=== PATIENT | female | born 1990 ===

== ENCOUNTER 2016-06-26 21:18 | Emergency (ER) | payer SELFPAY ==
[2016-06-26 21:56] VITALS: BMI 35.2
[2016-06-26] MEDS ORDERED: Bicitra 30 ML UD PO ONE (22:22)
[2016-06-26] MEDS ORDERED: Lactated Ringer's 1,000 ML IV SCH (23:30)
[2016-06-27 00:08] LABS: HEMATOCRIT 36.5 % (34.0-47.0); MEAN CELL VOLUME 89.2 fl (81.0-99.0); MEAN CORPUSCULAR HEMOGLOBIN 30.3 pg (27.0-31.0); WHITE BLOOD COUNT 6.9 K/uL (4.8-10.8)
[2016-06-27 00:11] LABS: RBC URINE < 1 /hpf (0-3); URINE BILIRUBIN NEGATIVE (NEGATIVE); URINE BLOOD NEGATIVE (NEGATIVE); URINE COLOR STRAW (YELLOW); URINE GLUCOSE (UA) NEG (Normal); URINE KETONE NEGATIVE (NEGATIVE); URINE LEUKOCYTE ESTERASE NEG Leu/uL (Negative); URINE PROTEIN NEGATIVE (NEGATIVE); URINE UROBILINOGEN 0.2-1.0 mg/dL (0.2-1.0); WBC URINE 1 /hpf (0-5)
[2016-06-27 00:24] LABS: ALKALINE PHOSPHATASE 140 U/L (38-126); ALT/SGPT 28 U/L (9-52); AST/SGOT 21 U/L (14-36); BILIRUBIN,TOTAL 0.6 mg/dl (0.2-1.3); BLOOD UREA NITROGEN 8 mg/dl (7-17); CALCIUM 9.1 mg/dL (8.4-10.2); CARBON DIOXIDE 22 mmol/L (22-30); CHLORIDE 103 mmol/L (98-107); GFR AFRICAN-AMERICAN > 60; GLUCOSE,RANDOM 97 mg/dL (65-105); POTASSIUM 4.1 MMOL/L (3.6-5.0); SODIUM 135 mmol/l (132-148); TOTAL PROTEIN 6.4 G/DL (6.3-8.2)
--- NOTE | 2016-07-07 15:24 | OBHP ---
Datetime: 06/27/2016 01:06 Admit Comment, IP Provider: Patient states that abdominal pain has subsided after Bicitrin and has b een sleeping. CBC, CMP, UA normal. Case discussed with Dr Torres. Patient cleared to be discharged. Patient state s that tomorrow has appointent in the clinic. Mitchell Myles PGY1 Addendum by Dr. Torres: I have evaluated the patient independently and I agree with the above. THe patient is asytmptomatic now and her labs are wnl. Patient to be discharged home with labor precautio ns and follow up in the clinic. Datetime: 06/26/2016 22:19 IP Adm Impression: , intrauterine IP Chief Complaint Other: epigastric abd pain, diarrhea IP Admit Plan: Observation/Evaluation Pelvic Type - PN: Not Done Extremities - PN: Normal Abdomen - PN: Abnormal Back - PN: Normal Lungs - PN: Normal Heart - PN: Normal Thyroid - PN: Normal Neurologic - PN: Normal HEENT - PN: Normal General - PN: Normal FHR - Baseline A Provider: 145 Comments, ACOG Physical Exam: epigastric abd pain and LLQ, difuse, no guarding, no rebound TD. Vital Signs Provider: Reviewed; Within Normal Limits IP Chief Complaint: Other NICHD Variability Prov Fetus A: Moderate 6-25bpm NICHD Accel Fetus A IP Provider: 15X15 FHR Category Provider Fetus A: Category I NICHD Decel Fetus A IP Provider: None DTRs - PN: Normal
== END 2016-06-27 01:15 | disposition home or self-care (01) ==
LOC: H.EROB2 21:18
DX: O26.93 Pregnancy related conditions, unspecified, third trimester (principal); Z3A.32 32 weeks gestation of pregnancy; R10.9 Unspecified abdominal pain

== ENCOUNTER 2016-07-25 10:41 | Emergency (ER) | payer SELFPAY ==
[2016-07-25 10:44] VITALS: BMI 26.6
[2016-07-25] MEDS ORDERED: Lactated Ringer's 1,000 ML IV SCH (11:30)
--- NOTE | 2016-07-25 11:35 | OBHP ---
Datetime: 07/25/2016 11:14 IP Adm Impression: , intrauterine IP Admit Plan: Observation/Evaluation Admit Comment, IP Provider: 25 yo , f, LMP 08/14 w/th edc 08/21 By 10wk us at 36.1 weeks toda y. OB hx sig for GDM A1 during this . Pt was referred to L_D by clinic for r/o ptl. In [facility] pt was found to be 1-2/-2/station Pt states she has had dysuria, increased freq and some blood noted this am when she voided. She denies fever, back pain, n/v, ctxs, pprom. Denies coitus >1mo. POBhx: GDM on glyburide after 06/15, x 1 PGynhx: none PMhx: none Allergies: none Meds: vit, Glyburide ordered 06/15 PSurgHx: none PShx: no ETOH, rect drugs, cig ABO: O + antibody : neg Gc/chlam: neg GBS unknown ri, hepBneg I:Threatened PTL UTI P: u/a, cbc ivf Presentation-Admit: Vertex Comments, ACOG Physical Exam: 1-2/-2 in office EGA AdmitDate IP: 36.1 IP Chief Complaint: Signs/symptoms UTI; Other
[2016-07-25 12:02] LABS: BASO % 0.4 % (0.0-2.0); EOS % 0.2 % (0.0-4.0); HEMATOCRIT 35.1 % (34.0-47.0); LYMPH % 17.5 % (20.0-40.0); MEAN CELL VOLUME 88.2 fl (81.0-99.0); MEAN CORPUSCULAR HEMOGLOBIN 30.7 pg (27.0-31.0); MEAN CORPUSCULAR HGB CONC 34.8 g/dL (33.0-37.0); MEAN PLATELET VOLUME 10.1 fl (7.2-11.7); MONO # 0.4 K/uL (0.0-0.8); MONO % 6.7 % (0.0-10.0); NEUT # 4.4 K/uL (1.8-7.0); NEUT % 75.2 % (50.0-75.0); RED CELL DISTRIBUTION WIDTH 13.6 % (11.5-14.5); WHITE BLOOD COUNT 5.9 K/uL (4.8-10.8)
[2016-07-25 12:03] LABS: RBC URINE 2 /hpf (0-3); URINE BACTERIA RARE (<OCC); URINE BILIRUBIN NEGATIVE (NEGATIVE); URINE BLOOD SMALL (NEGATIVE); URINE COLOR YELLOW (YELLOW); URINE GLUCOSE (UA) NEG (Normal); URINE KETONE NEGATIVE (NEGATIVE); URINE LEUKOCYTE ESTERASE TRACE Leu/uL (Negative); URINE PROTEIN NEGATIVE (NEGATIVE); URINE UROBILINOGEN 0.2-1.0 mg/dL (0.2-1.0); WBC URINE 3 /hpf (0-5)
[2016-07-25 12:13] LABS: BLOOD UREA NITROGEN 10 mg/dl (7-17); CALCIUM 8.8 mg/dL (8.4-10.2); CARBON DIOXIDE 22 mmol/L (22-30); CHLORIDE 105 mmol/L (98-107); GFR AFRICAN-AMERICAN > 60; GLUCOSE,RANDOM 88 mg/dL (65-105); POTASSIUM 3.9 MMOL/L (3.6-5.0); SODIUM 136 mmol/l (132-148)
[2016-07-25] MEDS ORDERED: Betamethasone Soluspan 30 mg/5mL Inj Susp IM ONE (15:45)
--- NOTE | 2016-07-25 16:11 | OBHP ---
Datetime: 07/25/2016 15:50 Admit Comment, IP Provider: s: no c/o. denies ctxs. 3cm/80/-1 to -2, no change, posterior u/a neg p: betamethasone x1 today. return to [facility] tomorrow for beta #2 indic for beta d/w pt she agrres w/ plan of care ptl precautions pelvic rest. Datetime: 07/25/2016 11:14 Pelvic Type - PN: Adequate Extremities - PN: Normal Abdomen - PN: Normal Back - PN: Normal Breast - PN: Not Done Lungs - PN: Normal Heart - PN: Normal Neurologic - PN: Normal HEENT - PN: Normal General - PN: Normal FHR - Baseline A Provider: 130 Contraction Comments Provider: occasional EGA AdmitDate IP: 36.1 Vital Signs Provider: Within Normal Limits NICHD Variability Prov Fetus A: Moderate 6-25bpm NICHD Accel Fetus A IP Provider: 15X15 FHR Category Provider Fetus A: Category I NICHD Decel Fetus A IP Provider: None Dilatation, Provider: 3 Effacement, Provider: 75 Station, Provider: -1/post Genitourinary Exam: Normal DTRs - PN: Not Done
== END 2016-07-25 16:42 | disposition home or self-care (01) ==
LOC: H.EROB2 10:41 → H.L&D 10:44 → H.EROB2 16:42
DX: O47.03 False labor before 37 completed weeks of gestation, third trimester (principal); O23.43 Unspecified infection of urinary tract in pregnancy, third trimester; Z3A.36 36 weeks gestation of pregnancy

== ENCOUNTER 2016-07-26 15:42 | Emergency (ER) | payer SELFPAY ==
[2016-07-26 16:39] VITALS: BMI 27.4
[2016-07-26] MEDS ORDERED: Betamethasone Soluspan 30 mg/5mL Inj Susp IM ONE (16:40)
--- NOTE | 2016-07-26 16:49 | OBHP ---
Datetime: 07/26/2016 16:43 IP Adm Impression: , intrauterine IP Chief Complaint Other: Steroid injection IP Admit Plan: Observation/Evaluation; Discharge home Pelvic Type - PN: Adequate Extremities - PN: Normal Abdomen - PN: Normal Back - PN: Not Done Breast - PN: Not Done Lungs - PN: Normal Heart - PN: Normal Thyroid - PN: Not Done Neurologic - PN: Not Done HEENT - PN: Normal General - PN: Normal FHR - Baseline A Provider: 150 EGA AdmitDate IP: 36.2 Vital Signs Provider: Reviewed; Within Normal Limits IP Chief Complaint: Other NICHD Variability Prov Fetus A: Moderate 6-25bpm NICHD Accel Fetus A IP Provider: 15X15 FHR Category Provider Fetus A: Category I NICHD Decel Fetus A IP Provider: None Genitourinary Exam: Normal DTRs - PN: Not Done
== END 2016-07-26 17:30 | disposition home or self-care (01) ==
LOC: H.EROB2 15:42
DX: O47.03 False labor before 37 completed weeks of gestation, third trimester (principal); Z3A.36 36 weeks gestation of pregnancy

== ENCOUNTER 2016-07-30 06:18 | Inpatient (IN) | payer MEDICAID, SELFPAY ==
[2016-07-30 07:04] VITALS: BMI 26.6
[2016-07-30] MEDS ORDERED: Oxytocin 20 units in LR 2,000 ML IV ONE (08:32)
[2016-07-30] MEDS ORDERED: Lidocaine 1% Inj (20ml) ONE (08:33)
[2016-07-30] MEDS ORDERED: Lactated Ringer's 1,000 ML IV SCH (09:00)
[2016-07-30 09:28] LABS: BASO % 0.5 % (0.0-2.0); EOS % 0.6 % (0.0-4.0); HEMATOCRIT 38.7 % (34.0-47.0); LYMPH # 1.3 K/uL (1.0-4.3); MEAN CELL VOLUME 89.5 fl (81.0-99.0); MEAN CORPUSCULAR HEMOGLOBIN 30.1 pg (27.0-31.0); MEAN CORPUSCULAR HGB CONC 33.7 g/dL (33.0-37.0); MEAN PLATELET VOLUME 10.7 fl (7.2-11.7); MONO # 0.5 K/uL (0.0-0.8); MONO % 8.5 % (0.0-10.0); NEUT # 4.4 K/uL (1.8-7.0); NEUT % 70.4 % (50.0-75.0); NRBC % 0.1 % (0.0-0.0); RED CELL DISTRIBUTION WIDTH 13.6 % (11.5-14.5); WHITE BLOOD COUNT 6.3 K/uL (4.8-10.8)
[2016-07-30] MEDS ORDERED: Oxycodone/Acetaminophen 5/325 mg Tab PO PRN ×2 (10:51→16:22)
--- NOTE | 2016-07-30 12:46 | OBDS ---
DELIVERY PERSONNEL Delivery Doctor: Johnathan Espana MD Terrazzo Tile Maker: Batsheva Humphries RN MATERNAL INFORMATION Delivery Anesthesia: Local Medications in Delivery: Pitocin 20 units in LR 1 L Estimated Blood Loss (ml): 200 Placenta Cultured: No Maternal Complications: None Provider Comments: Delivered a live baby girl at 9:10 AM the baby was bulb suctioned on the perineum then transferred to maternal chest the cord was clamped and cut and 3 vessels noted cord blood was o btained and sent to the lab. The placenta was delivered at night 13 a.m. intact he estimated blood lo ss was 200 mL. There was a first-degree left vaginal laceration which was repaired with 2-0 rapide. P itocin was infused to assist in uterine embolization. The mother tolerated the procedure well baby we nt to the nursery with Apgars of 9 and 9 weighing 3185 g LABOR SUMMARY EDC: 08/21/2016 00:00 No. Babies in Womb: 1 Attempted: No Labor Anesthesia: None LABOR INFORMATION Onset of Labor: 07/30/2016 05:00 Complete Dilatation: 07/30/2016 09:00 Oxytocin: N/A Group B Beta Strep: Negative Antibiotics # of Doses: n/a Antibiotics Time of Last Dose: n/a Steroids Given: None Reason Steroids Not Administered: Not Applicable MEMBRANES Membranes Rupture Method: Spontaneous Rupture of Membranes: 07/30/2016 06:00 Length of Rupture (hrs): 3.17 Amniotic Fluid Color: Clear Amniotic Fluid Amount: Small Amniotic Fluid Odor: Normal STAGES OF LABOR Stage 1 hrs: 4 Stage 1 min: 0 Stage 2 hrs: 0 Stage 2 min: 10 Stage 3 hrs: 0 Stage 3 min: 3 Total Time in Labor hrs: 4 Total Time in Labor min: 13 VAGINAL DELIVERY Episiotomy: None Laceration Extension: First Degree Laceration Type: Vaginal Laceration Repair: Yes Laceration Repair Note: 2.0 rapide Sponge Count Correct: Yes Sharps Count Correct: Yes BABY A INFORMATION Delivery Date/Time: 07/30/2016 09:10 Method of Delivery: Vaginal Born in Route : No : N/A Forceps: N/A Vacuum Extraction: N/A Shoulder Dystocia : No SHOULDER DYSTOCIA BABY A Infant Delivery Date/Time: 07/30/2016 09:10 PRESENTATION/POSITION BABY A Presentation: Cephalic Breech Presentation: N/A PLACENTA INFORMATION BABY A Placenta Delivery Time : 07/30/2016 09:13 Placenta Method of Delivery: Spontaneous Placenta Status: Delivered SCORES BABY A Heart Rate 1 min: >100 bpm Resp Effort 1 min: Good Cry Reflex Irritability 1 min: Cough or Sneeze or Pulls Away Muscle Tone 1 min: Active Motion Color 1 min: Body [place], Extremities Blue Resuscitation Effort 1 min: Tactile Stimulation SCORE 1 MIN: 9 Heart Rate 5 min: >100 bpm Resp Effort 5 min: Good Cry Reflex Irritability 5 min: Cough or Sneeze or Pulls Away Muscle Tone 5 min: Active Motion Color 5 min: Body [place], Extremities Blue Resuscitation Effort 5 min: N/A SCORE 5 MIN: 9 INFORMATION BABY A Gestational Age at Delivery: 36.6 Gestational Status: Outcome : Liveborn Condition : Stable Infant Sex: Female IDENTIFICATION/MEDS BABY A ID Band Number: [id number] ID Band Location: Left Leg; Left Arm Vitamin K Given : Not Given Erythromycin Given: Not Given WEIGHT/LENGTH BABY A Infant Birthweight (gms): 3185 Infant Weight (lb): 7 Weight (oz): 0 CORD INFORMATION BABY A No. Cord Vessels: 3 Nuchal Cord : N/A Nuchal Cord Other: n/a True Knot: n/a Cord pH Baby Arterial: n/a Cord pH Baby Venous: n/a Cord Blood Taken: Yes Banking/Donate Info: n/a Infant Suction: Mouth; Nose ASSESSMENT BABY A Infant Complications: None Physical Findings at Delivery: Within Normal Limits Respirations: Appears Normal Hooker Machine Tender/ALS Called : No Infant Care By: Shaan Transferred To: Remains with Mother
[2016-07-30 14:48] VITALS: BP 132/77; PULSE 70; RESP 18; TEMP 97.2; O2SAT 100
[2016-07-31] MEDS: Lactated Ringer's 1,000 ML IV SCH ×2 (01:22→15:55)
[2016-07-31 06:55] LABS: HEMATOCRIT 34.4 % (34.0-47.0); MEAN CELL VOLUME 89.3 fl (81.0-99.0); MEAN CORPUSCULAR HEMOGLOBIN 30.4 pg (27.0-31.0); MEAN CORPUSCULAR HGB CONC 34.1 g/dL (33.0-37.0); RED CELL DISTRIBUTION WIDTH 13.8 % (11.5-14.5); WHITE BLOOD COUNT 11.5 K/uL (4.8-10.8)
--- NOTE | 2016-07-31 12:35 | OBPPN ---
Datetime: 07/31/2016 07:53 PP Pain Prov: Within normal limits PP Nausea Prov: Denies PP Flatus Prov: No PP BM Prov: No PP Breasts Prov: Normal PP Heart Prov: Normal PP Lungs Prov: Normal PP Abdomen/Uterus Prov: Normal PP Lochia Prov: Normal PP Vulva/Perineum Prov: Not Done PP CVA Tenderness Prov: Not Done PP Extremities Prov: Normal PP C/S Incision Prov: Not Applicable PP Progress Prov: Normal PP Impression Prov: Normal progression PP Plan Prov: Continue present management PP Progress Note Prov: 25 y/o now seen and examined at bedside. Patient had uneventful overnig ht. Patient reports mild pelvic pain controlled w/ pain meds. OOB/Ambulating w/o dizziness. Breast /bottle feeding w/o difficulty. Tolerating PO diet well. Lochia is less than menses in volume. Voi ding freely w/ no blood noted. Reports no bowel movement. Denies fevers, chills, n/v/d, CP/SOB, lig htheadedness and calf pain. PE: GEN: A_O, resting comfortably in bed, NAD Lung: CTA B/L, no wheezing, rhonchi, or rales CVS: S1, S2 wnl, RRR Abd: +BS, firm fundus below umbilicus. EXT: no edema, negative Martha's, calves non-tender Assessment: 25 y/o now s/p on 07/30/2016 @ 09:10 pm tolerating pain w/ medication, marshal ating oral intake, adequate urine output, doing well on PPD1. Plan: Percocet 5/325 mg 1-2 tabs PO Q6h prn for mod/severe pain. Ibuprofen 600 mg 1 tab Q6h PO pr n for mild pain. Encourage breast feeding and ambulation. Jesus Bell M.D. Orthotics Prosthetics Technician PGY-1 obh addendum: pt seen _ exmined by me. agree with above assessment and plan. IP PP Procedures: None Vital Signs Provider PP: Reviewed; Within Normal Limits
--- NOTE | 2016-08-01 10:10 | OBPPN ---
Datetime: 08/01/2016 05:45 PP Pain Prov: Within normal limits PP Nausea Prov: Denies PP Flatus Prov: Yes PP BM Prov: Yes PP Breasts Prov: Normal PP Heart Prov: Normal PP Lungs Prov: Normal PP Abdomen/Uterus Prov: Normal PP Lochia Prov: Normal PP Vulva/Perineum Prov: Normal PP CVA Tenderness Prov: Normal PP Extremities Prov: Normal PP Comments Phys Exam Prov: fundus firm below level of umbilicus PP Impression Prov: Normal progression PP Plan Prov: Continue present management; Discharge PP Progress Note Prov: pt seen and examined at bedside this morning. No acute events overnight. No n ew complaints. Tolerating pain without medications. OOB/ambulating without dizziness. Bleeding has al most completely resolved. Tolerating PO intake without difficulty. Breast and bottle feeding but is m aking an effort to breastfeed more often. Denies fever/chills, headaches, changes in vision, CP/SOB, N/V/D, urinary symptoms. A/P: 25 y/o s/p on 07/30 doing well on PPD#2. -discharge home today -Ibuprofen 650mg PO PRN Q6H for mild/moderate pain -ambulation with caution - encouraged -resume normal activities except nothing per vagina/sex. -pt undecided on contraception but leaning towards condoms -f/u in 6 weeks in H -ED precautions Uriah Medrano MD PGY1 @ 5:49am OB Hospitalist on-call. I saw and examined this patient on rounds. Agree with note. CARLTON Hartley home and follow up in 6w IP PP Procedures: None Vital Signs Provider PP: Reviewed; Within Normal Limits
--- NOTE | 2016-08-01 10:11 | OBDCSUM ---
Datetime: 08/01/2016 05:44 Discharged to, Provider: Home Follow up at, Provider: [facility] Disch Instr Activity: Normal activity Disch Instr Diet: Regular Discharge Instructions, Provider: Routine instructions given Discharge Diagnosis, Provider: Delivery Discharge Time: 08/01/2016 05:44 Follow up in weeks, Provider: 6 weeks Disch Referrals: None Contraception discussed, Prov: Yes Disch Activity Restrictions: No sexual activity; Nothing in vagina - [place], tampons, douche Discharge Comment, Provider: any worsening fever/chills, bleeding, abdominal pain uncontrolled with medication report to ED. Contraception after Delivery: Foam/Condoms
== END 2016-08-01 15:00 | disposition home or self-care (01) | DRG 775 ==
LOC: H.EROB2 06:18 → H.L&D 07:52 → H.OB/GYN 15:30
PROVIDERS: ADMIT Obstetrics & Gynecology; ATTEND Obstetrics & Gynecology
PROC: 3E033VJ Introduction of Other Hormone into Peripheral Vein, Percutaneous Approach (ICD-10-PCS; principal; 2016-07-30)
PROC: 10E0XZZ Delivery of Products of Conception, External Approach (ICD-10-PCS; 2016-07-30)
PROC: 0HQ9XZZ Repair Perineum Skin, External Approach (ICD-10-PCS; 2016-07-30)
PROC: 4A1HXCZ Monitoring of Products of Conception, Cardiac Rate, External Approach (ICD-10-PCS; 2016-07-30)
DX: O60.14X0 Preterm labor third trimester with preterm delivery third trimester, not applicable or unspecified (principal); O70.0 First degree perineal laceration during delivery; Z37.0 Single live birth; Z3A.36 36 weeks gestation of pregnancy

== ENCOUNTER 2017-07-04 16:51 | Emergency (ER) | payer SELFPAY ==
[2017-07-04 16:51] VITALS: BMI 26.6
[2017-07-04 17:49] VITALS: RESP 18
--- NOTE | 2017-07-04 18:48 | ED PDOC ---
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 denies: Sputum, Nausea, Vomiting, Diarrhea Ear Symptoms: Right: Ear Pain Additional History Per: Patient Additional Complaint(s): 26y/o female, presents to ED with complaints of right ear pain associated with cough and a tactile fever since 1AM. Patient reports she took Ibuprofen at home , last dose 8AM with no relief of symptoms, prompting her ER visit. Patient denies any throat pain, chest pain, SOB, nausea, vomiting, dizziness, known sick contacts, or recent foreign travel. She states her LMP was 05/07/17 and her menstrual cycles are always irregular. She has no other medical complaints at this time. Past Medical History Reviewed: Historical Data, Nursing Documentation, Vital Signs Vital Signs: Last Vital Signs Temp 98 F 07/04/17 19:58 Pulse 76 07/04/17 19:58 Resp 18 07/04/17 19:58 BP 110/71 07/04/17 19:58 Pulse Ox 99 07/07/17 02:40 - Medical History PMH: No Chronic Diseases - Surgical History Surgical History: No Surg Hx - Family History Family History: States: No Known Family Hx - Living Arrangements Living Arrangements: With Family - Social History Current smoker - smoking cessation education provided: No Alcohol: None Drugs: Denies - Home Medications Home Medications: Ambulatory Orders Medication Instructions Recorded Vit Calc,Iron,Folic 1 tab PO DAILY 06/26/16 [ Vitamins] Ibuprofen [Motrin] 600 mg PO Q6 PRN #30 tab 08/01/16 Amoxicillin 875 mg PO Q12 #14 tablet 07/04/17 Ibuprofen [Motrin Tab] 600 mg PO Q6 PRN #24 tab 07/04/17 - Allergies Allergies/Adverse Reactions: Allergies Allergy/AdvReac Type Severity Reaction Status Date / Time No Known Allergies Allergy Verified 07/25/16 10:44 Review of Systems ROS Statement: Except As Marked, All Systems Reviewed And Found Negative Constitutional: Positive for: Fever (tactile) ENT: Positive for: Ear Pain Respiratory: Positive for: Cough. Negative for: Shortness of Breath Gastrointestinal: Negative for: Nausea, Vomiting Neurological: Negative for: Weakness Physical Exam - Reviewed Nursing Documentation Reviewed: Yes Vital Signs Reviewed: Yes - Physical Exam Comments: GENERAL APPEARANCE: Patient is awake, alert, oriented x 3, in no acute distress. SKIN: Warm, dry; (-) cyanosis. NECK: Supple, FROM (-) tenderness (-) rigidity ENMT: Ear Canals : (-) cerumen impaction, (-)erythema (-) vesicles (-) exudate. TMs: (+) Right TM bulging and erythematous, (-) perforation,(-) vesicles. Left TM unremarkable. (-) Tenderness with helix or tragus movement B/L. Frontal / maxillary sinuses : (-) tenderness. (-) TMJ tenderness. Pharynx: Clear; (-) erythema, (-) exudate. Airway patent: (-) stridor. Uvula midline. LUNGS: clear, (-) wheezing, (-) rhonchi (-) rales. Breath sounds equal bilaterally. CARDIAC: RRR, (-) murmurs, (-) gallops. NEURO: Mental status as above. Gait steady. Speech clear. - ECG O2 Sat by Pulse Oximetry: 99 (RA) Pulse Ox Interpretation: Normal Medical Decision Making Medical Decision Making: Impression: Otalgia, right ear otitis media Plan: -- Amoxicillin 500mg PO -- Motrin 600 mg PO Time: 1905 Patient reports improvement in ear pain. Patient remains awake, alert, oriented x 3 and is laying in bed comfortably. On exam, neck is supple, lungs are clear, abdomen is soft and non tender, heart is at regular rate and rhythm. Repeat neuro shows no focal findings. VSS, stable for discharge. Based on history and exam, plan will be for discharge home with prescription for antibiotics. Advised to follow up with primary care physician in 1-2 days without fail. Advised to take medication as prescribed. Return to the emergency room at any time for any new or worsening symptoms. Patient states she fully agrees with and understands discharge instructions. States that she agrees with the plan and disposition. Verbalized and repeated discharge instructions and plan. I have given the patient opportunity to ask any additional questions. Scribe Attestation: Documented by Johanna Lo acting as a scribe for DORENE Mccormick. Provider Attestation: All medical record entries made by the Scribe were at my direction and personally dictated by me. I have reviewed the chart and agree that the record accurately reflects my personal performance of the history, physical exam, medical decision making, and the department course for this patient. I have also personally directed, reviewed, and agree with the discharge instructions and disposition. Disposition - Clinical Impression Clinical Impression: Right ear pain, Otitis media - Patient ED Disposition Is Patient to be Admitted: No Counseled Patient/Family Regarding: Diagnosis, Need For Followup, Rx Given - Disposition [facility]errals: [facility] [Outside] Disposition: Routine/Home Disposition Time: 19:11 Condition: STABLE Additional Instructions: TAKE ANTIBIOTICS UNTIL COMPLETE. RETURN TO ED WITH ANY NEW OR WORSENING SYMPTOMS. Prescriptions: Amoxicillin 875 mg PO Q12 #14 tablet Ibuprofen [Motrin Tab] 600 mg PO Q6 PRN #24 tab PRN Reason: Pain, Moderate (4-7) Instructions: Ear Infections (Otitis Media) Forms: [employer] (Bengali) Print Language: SERBIAN - POA Present On Arrival: None
[2017-07-04 19:59] VITALS: BP 110/71; PULSE 76; TEMP 98
[2017-07-07 02:34] VITALS: O2SAT 99
== END 2017-07-04 19:59 | disposition home or self-care (01) ==
LOC: H.ER 16:51
DX: H66.91 Otitis media, unspecified, right ear (principal)

== ENCOUNTER 2017-09-22 17:45 | Emergency (ER) | payer SELFPAY ==
[2017-09-22 17:45] VITALS: BMI 26.6
[2017-09-22 17:57] VITALS: PULSE 74
--- NOTE | 2017-09-22 18:33 | ED PDOC ---
HPI: Abdomen Time Seen by Provider: 09/22/17 18:03 Chief Complaint (Nursing): Abdominal Pain Chief Complaint (Provider): Threatened AB History Per: Patient Additional Complaint(s): Patient is 26 yo, no PMH, G 3 P2, presents to ED with complaints of abdominal pain in . Pt is ~ 8 w , reports her period is irregular so she is unsure. Pt notes pain developed last night. no bleeding no urinary complaints Past Medical History Reviewed: Nursing Documentation, Vital Signs Vital Signs: Last Vital Signs Temp 98.4 F 09/22/17 17:55 Pulse 74 09/22/17 17:55 Resp 18 09/22/17 17:55 BP 98/63 L 09/22/17 17:55 Pulse Ox 100 09/22/17 18:36 - Medical History PMH: No Chronic Diseases - Surgical History Surgical History: No Surg Hx - Family History Family History: States: No Known Family Hx - Living Arrangements Living Arrangements: With Family - Social History Current smoker - smoking cessation education provided: No Alcohol: None Drugs: Denies - Home Medications Home Medications: Ambulatory Orders Medication Instructions Recorded Vit Calc,Iron,Folic 1 tab PO DAILY 06/26/16 [ Vitamins] Ibuprofen [Motrin] 600 mg PO Q6 PRN #30 tab 08/01/16 Amoxicillin 875 mg PO Q12 #14 tablet 07/04/17 Ibuprofen [Motrin Tab] 600 mg PO Q6 PRN #24 tab 07/04/17 - Allergies Allergies/Adverse Reactions: Allergies Allergy/AdvReac Type Severity Reaction Status Date / Time No Known Allergies Allergy Verified 09/22/17 17:55 Review of Systems ROS Statement: Except As Marked, All Systems Reviewed And Found Negative Physical Exam - Reviewed Nursing Documentation Reviewed: Yes Vital Signs Reviewed: Yes - Physical Exam Appears: Positive for: Well, Non-toxic, No Acute Distress Head Exam: Positive for: ATRAUMATIC, NORMAL INSPECTION, NORMOCEPHALIC Skin: Positive for: Normal Color, Warm, DRY Eye Exam: Positive for: EOMI, Normal appearance, PERRL ENT: Positive for: Normal ENT Inspection Neck: Positive for: Normal, Painless ROM Cardiovascular/Chest: Positive for: Regular Rate, Rhythm Respiratory: Positive for: CNT, Normal Breath Sounds Gastrointestinal/Abdominal: Positive for: Normal Exam, Soft. Negative for: Tenderness Back: Positive for: Normal Inspection Extremity: Positive for: Normal ROM Neurologic/Psych: Positive for: Alert, Oriented - Laboratory Results Result Diagrams: 09/22/17 18:50 09/22/17 18:50 - ECG O2 Sat by Pulse Oximetry: 100 Medical Decision Making Medical Decision Making: diagnostics resulted and reviewed with Pt who demonstrated full understanding Pt without any complaints of pain on re-eval. Stable for discharge at this time. advised to follow up with OB Disposition - Clinical Impression Clinical Impression: Abdominal pain during - Patient ED Disposition Is Patient to be Admitted: No - Disposition Disposition: Routine/Home Disposition Time: 20:08 Condition: STABLE Instructions: How to Adapt to Physical Changes During , Threatened Miscarriage Forms: [employer] (Kenyan) Print Language: VIETNAMESE
[2017-09-22 18:54] LABS: SQUAMOUS EPITHIAL 1 /hpf (0-5); URINE BILIRUBIN NEGATIVE (NEGATIVE); URINE BLOOD NEGATIVE (NEGATIVE); URINE CLARITY SLIGHTY-CLOUDY (Clear); URINE COLOR YELLOW (YELLOW); URINE GLUCOSE (UA) NEG (Normal); URINE LEUKOCYTE ESTERASE NEG Leu/uL (Negative); URINE PROTEIN NEGATIVE (NEGATIVE); URINE UROBILINOGEN 0.2-1.0 mg/dL (0.2-1.0)
[2017-09-22 18:56] LABS: BASO # 0.1 K/uL (0.0-0.2); BASO % 0.9 % (0.0-2.0); EOS # 0.1 K/uL (0.0-0.7); EOS % 0.7 % (0.0-4.0); HEMOGLOBIN 13.2 g/dL (12.0-16.0); LYMPH # 1.9 K/uL (1.0-4.3); LYMPH % 20.6 % (20.0-40.0); MEAN CORPUSCULAR HEMOGLOBIN 30.1 pg (27.0-31.0); MEAN CORPUSCULAR HGB CONC 35.1 g/dL (33.0-37.0); MEAN PLATELET VOLUME 8.7 fl (7.2-11.7); MONO # 0.5 K/uL (0.0-0.8); MONO % 5.9 % (0.0-10.0); NEUT # 6.5 K/uL (1.8-7.0); NEUT % 71.9 % (50.0-75.0); RBC 4.38 Mil/uL (3.80-5.20); RED CELL DISTRIBUTION WIDTH 13.3 % (11.5-14.5); WHITE BLOOD COUNT 9.1 K/uL (4.8-10.8)
[2017-09-22 19:03] LABS: ALB/GLOB RATIO 1.4 (1.0-2.1); ALBUMIN 4.1 g/dL (3.5-5.0); ALT/SGPT 42 U/L (9-52); AST/SGOT 31 U/L (14-36); BLOOD UREA NITROGEN 9 mg/dl (7-17); CALCIUM 9.3 mg/dL (8.4-10.2); GFR AFRICAN-AMERICAN > 60; GFR NON-AFRICAN AMERICAN > 60
[2017-09-22 21:28] VITALS: BP 122/78; RESP 16; TEMP 98.2; O2SAT 98
--- NOTE | 2017-09-23 08:32 | US ---
Date of service: 09/22/2017 PROCEDURE: OB Pelvic Ultrasound HISTORY: pain, 8 w LMP: Unknown COMPARISON: None available. FINDINGS: UTERUS: Gestational sac: Single intrauterine gestation. Measures 3.2 cm compatible with estimated gestational age of 8 weeks, 1 day. Yolk sac: Measures 0.5 cm. pole: Levan-rump length measures 1.6 cm compatible with estimated gestational age of 8 weeks, 0 days. Heart rate: 159 bpm. age (Ultrasound estimated): 8 weeks, 1 day Jacinda-gestational hemorrhage: None. Date of delivery (Ultrasound estimated) : 05/03/2018 Uterus measures 12.2 x 8.3 x 6.0 cm. Normal in size and appearance. CERVIX: Measures 3.4 cm. Long and closed. No cervical abnormality seen. RIGHT OVARY: Measures 3.1 x 1.9 x 1.8 cm. No mass lesion. Normal flow. LEFT OVARY: Measures 3.2 x 2.9 x 2.6 cm. No solid mass. Normal flow. FREE FLUID: None. OTHER FINDINGS: None. IMPRESSION: Single live intrauterine gestation with average ultrasound age of 8 weeks, 1 day. heart rate 159 beats per minute. Cervix long and closed.
== END 2017-09-22 20:30 | disposition home or self-care (01) ==
LOC: H.ER 17:45
DX: O26.91 Pregnancy related conditions, unspecified, first trimester (principal); R10.2 Pelvic and perineal pain; Z3A.08 8 weeks gestation of pregnancy

== ENCOUNTER 2018-04-18 17:00 | Inpatient (IN) | payer MEDICAID, SELFPAY ==
[2018-04-18 21:10] VITALS: BMI 27.6
[2018-04-18] MEDS ORDERED: Lactated Ringer's 1,000 ML IV ONE (21:10)
[2018-04-18] MEDS ORDERED: Penicillin G Potassium 5 MU in Sodium Chloride 0.9% 50 ML IVPB ONE (21:10)
[2018-04-18] MEDS ORDERED: Oxytocin 30 UNIT 30 UNITS/500 ML BAG IV ONE (21:16)
[2018-04-18] MEDS ORDERED: OXYTOCIN/0.9 % NS 20 UNIT/1,000 ML BAG IV SCH (21:30)
[2018-04-18] MEDS: Lactated Ringer's 1,000 ML IV SCH (22:00)
[2018-04-18 22:55] LABS: BASO % 0.4 % (0.0-2.0); EOS % 0.3 % (0.0-4.0); HEMOGLOBIN 13.2 g/dL (12.0-16.0); LYMPH # 1.5 K/uL (1.0-4.3); LYMPH % 24.9 % (20.0-40.0); MEAN CELL VOLUME 89.8 fl (81.0-99.0); MEAN CORPUSCULAR HGB CONC 33.5 g/dL (33.0-37.0); MEAN PLATELET VOLUME 11.1 fl (7.2-11.7); MONO # 0.4 K/uL (0.0-0.8); MONO % 6.3 % (0.0-10.0); NEUT # 4.1 K/uL (1.8-7.0); NEUT % 68.1 % (50.0-75.0); NRBC % 0.1 % (0.0-0.0); RBC 4.4 Mil/uL (3.80-5.20); RED CELL DISTRIBUTION WIDTH 13.7 % (11.5-14.5); WHITE BLOOD COUNT 5.9 K/uL (4.8-10.8)
[2018-04-18] MEDS ORDERED: Penicillin G 5 Million Unit Vial IVPB ONE (23:22)
[2018-04-19 00:13] VITALS: PULSE 65
[2018-04-19] MEDS: Lactated Ringer's 1,000 ML IV SCH (02:00)
[2018-04-19] MEDS ORDERED: Lidocaine 1% Inj (20ml) IJ ONE (02:59)
[2018-04-19] MEDS ORDERED: Lidocaine 1% PF (5ml) Amp INJ ONE (03:15)
[2018-04-19] MEDS ORDERED: Oxycodone/Acetaminophen 5/325 mg Tab PO PRN ×4 (04:17→06:17)
[2018-04-19] MEDS ORDERED: Benzocaine/Menthol SPRAY TOP PRN ×2 (04:17→06:17)
--- NOTE | 2018-04-19 08:49 | OBADHP ---
Datetime: 04/18/2018 21:17 Admit Comment, IP Provider: 27-year-old at 37+6 wks EGA presented from [facility] d/t decreased PER from previous scan. Patient admits to mild discharge/leaking over the last few days but denies gush of fluid, vaginal bleeding, contractions, headache, change in vision, nausea, vomiting and new-onset edema. Endorses good movement. Patient has GDM, diet controlled but does not have any glucose l ogs available. Previous two pregnancies were @ 36 weeks gestation, pt reports weights of babies 7lbs and 7lbs 2 oz with no complications. Patient of [facility]. OB: [facility] PMH: denies, GDM OBHx: 2x @ 36 wks and 40 weeks EGA (, ), as per patient 7lbs, 7lbs 2 oz - no complicati ons Allergies: NKDA FHx: denies Social: denies Labs: HIV: unknown; HbsAg: negative; GBS: positive; RPR: unknown; Rubella: unknown; Gc/Cl: unknown ; ABO: unknown; Antibody: unknown ROS: all other systems reviewed and negative unless otherwise noted in HPI PE: Gen: comfortable, lying in bed in NAD CV: RRR Resp: no respiratory distress Abd: no abdominal tenderness to palpation Ext: varicose veind bilateral lower extremities, no pitting edema Skin: no rash, no jaundice PE: 4 cm dilated; Bedside ultrasound: cephalic presentation A+P: 27-year-old at 37+6 wks EGA presents from [facility] d/t decreased PER from previous scan ad mitted for labor. -NST- reactive - Admit to L and D and anticipate vaginal delivery - CBC and type and screen - third trimester labs - Penicillin for GBS positive. -Anesthesia consult - LR Discussed with Dr. Casey Austin PGY1 Pelvic Type - PN: Adequate Extremities - PN: Normal Abdomen - PN: Normal Back - PN: Normal Breast - PN: Not Done Lungs - PN: Normal Heart - PN: Normal Thyroid - PN: Normal Neurologic - PN: Normal HEENT - PN: Normal General - PN: Normal FHR - Baseline A Provider: 135 Contraction Comments Provider: IRREGULAR Vital Signs Provider: Reviewed; Within Normal Limits IP Chief Complaint: Uterine contractions NICHD Variability Prov Fetus A: Moderate 6-25bpm NICHD Accel Fetus A IP Provider: 15X15 FHR Category Provider Fetus A: Category I NICHD Decel Fetus A IP Provider: None Genitourinary Exam: Normal DTRs - PN: Normal EGA AdmitDate IP: 37.6 IP Adm Impression: Term, intrauterine IP Admit Plan: Admit to unit; Initiate labor protocol Datetime: 04/18/2018 18:20 Dilatation, Provider: 3 Effacement, Provider: 50 Station, Provider: 0
--- NOTE | 2018-04-19 08:55 | OBDS ---
DELIVERY PERSONNEL Delivery Doctor: Gwen Hdez MD Electric Clock Mechanic: Aziza Amin RN Resident: MATERNAL INFORMATION Delivery Anesthesia: Local Medications in Delivery: PITOCIN 30 UNITS IN 500 ML NS Estimated Blood Loss (ml): 300 Placenta Cultured: No Maternal Complications: None Provider Comments: Normal spontaneous vaginal delivery. Patient delivered viable infant female with Apgars of 8 and 8 at 1 and 5 minutes respectively. In chepe delivered via ELLYN position. Due to temporary shoulder dystocia, patient placed in Rubi position and suprapubic pressure a pplied by nursing. With these and gentle traction, infant delivered without complication. Pediatric s called to room. Placenta delivered spontaneously. Laceration repaired, as above. Uterus firm and appropriately h emostatic following delivery. Patient tolerated delivery and repair well. Estimated blood loss 300 cc. LABOR SUMMARY EDC: 05/03/2018 00:00 No. Babies in Womb: 1 Attempted: No Labor Anesthesia: None LABOR INFORMATION Reason for Induction: Not Applicable Onset of Labor: 04/19/2018 00:30 Complete Dilatation: 04/19/2018 03:40 Oxytocin: N/A Group B Beta Strep: Positive Antibiotics # of Doses: 2 Antibiotics Time of Last Dose: 0200 Steroids Given: None Reason Steroids Not Administered: Not Applicable MEMBRANES Membranes Rupture Method: Spontaneous Rupture of Membranes: 04/19/2018 00:30 Length of Rupture (hrs): 3.32 Amniotic Fluid Color: Clear Amniotic Fluid Amount: Moderate Amniotic Fluid Odor: Normal STAGES OF LABOR Stage 1 hrs: 3 Stage 1 min: 10 Stage 2 hrs: 0 Stage 2 min: 9 Stage 3 hrs: 0 Stage 3 min: 3 Total Time in Labor hrs: 3 Total Time in Labor min: 22 VAGINAL DELIVERY Laceration Extension: Second Degree Laceration Type: Perineal Laceration Repair Note: Second-degree midline perineal laceration. Area infiltrated with 1% lidocai ne. Laceration repaired with 2.0 repeated without complication. Patient tolerated well. Initial Vag Sponge Count: 5 Final Vag Sponge Count: 5 Initial Vag Sharps Count: 1 Final Vag Sharps Count: 1 Sponge Count Correct: Yes Sharps Count Correct: Yes BABY A INFORMATION Delivery Date/Time: 04/19/2018 03:49 Method of Delivery: Vaginal Born in Route : No : N/A Forceps: N/A Vacuum Extraction: N/A Shoulder Dystocia : Yes SHOULDER DYSTOCIA BABY A Delivery of Head: 04/19/2018 03:47 Delivery Date/Time: 04/19/2018 03:49 Time Head to Delivery : 2.0 1st Intervention to Resolve: McRobert's Maneuver 2nd Intervention to Resolve: Suprapubic Pressure Verify NO Fundal Pressure: No Fundal Pressure Applied Arm Under Symphisis at Del: Right PRESENTATION/POSITION BABY A Presentation: Cephalic Cephalic Presentation: Vertex Breech Presentation: N/A PLACENTA INFORMATION BABY A Placenta Delivery Time : 04/19/2018 03:52 Placenta Method of Delivery: Spontaneous Placenta Status: Delivered SCORES BABY A Heart Rate 1 min: >100 bpm Resp Effort 1 min: Good Cry Reflex Irritability 1 min: Cough or Sneeze or Pulls Away Muscle Tone 1 min: Active Motion Color 1 min: Blue/Pale Resuscitation Effort 1 min: Tactile Stimulation SCORE 1 MIN: 8 Heart Rate 5 min: >100 bpm Resp Effort 5 min: Good Cry Reflex Irritability 5 min: Cough or Sneeze or Pulls Away Muscle Tone 5 min: Active Motion Color 5 min: Blue/Pale Resuscitation Effort 5 min: Tactile Stimulation; Oxygen; PPV/NCPAP SCORE 5 MIN: 8 INFORMATION BABY A Gestational Age at Delivery: 38.0 Gestational Status: Term Outcome : Liveborn Condition : Stable Sex: Female WEIGHT/LENGTH BABY A Birthweight (gms): 3830 Infant Weight (lb): 8 Weight (oz): 7 Length Inches: 19.88 Infant Length cms: 50.5 CORD INFORMATION BABY A No. Cord Vessels: 3 Nuchal Cord : N/A Suction: Mouth; Nose; Pharynx ASSESSMENT BABY A Complications: Shoulder Dystocia Physical Findings at Delivery: Within Normal Limits Infant Respirations: Appears Normal Care By: Transferred To: Remains with Mother
--- NOTE | 2018-04-19 08:59 | OBDS ---
DELIVERY PERSONNEL Delivery Doctor: Gwen Hdez MD Sash Installer: Aziza Amin RN Resident: MATERNAL INFORMATION Delivery Anesthesia: Local Medications in Delivery: PITOCIN 30 UNITS IN 500 ML NS Estimated Blood Loss (ml): 300 Placenta Cultured: No Maternal Complications: None Provider Comments: Normal spontaneous vaginal delivery. Patient delivered viable infant female with Apgars of 8 and 8 at 1 and 5 minutes respectively. In chepe delivered via ELLYN position. Due to temporary shoulder dystocia, patient placed in Rubi position and suprapubic pressure a pplied by nursing. With these and gentle traction, infant delivered without complication. Pediatric s called to room. Placenta delivered spontaneously. Laceration repaired, as above. Uterus firm and appropriately h emostatic following delivery. Patient tolerated delivery and repair well. Estimated blood loss 300 cc. LABOR SUMMARY EDC: 05/03/2018 00:00 No. Babies in Womb: 1 Attempted: No Labor Anesthesia: None LABOR INFORMATION Reason for Induction: Not Applicable Onset of Labor: 04/19/2018 00:30 Complete Dilatation: 04/19/2018 03:40 Oxytocin: N/A Group B Beta Strep: Positive Antibiotics # of Doses: 2 Antibiotics Time of Last Dose: 0200 Steroids Given: None Reason Steroids Not Administered: Not Applicable MEMBRANES Membranes Rupture Method: Spontaneous Membranes Rupture Method: Spontaneous Rupture of Membranes: 04/19/2018 00:30 Length of Rupture (hrs): 3.32 Amniotic Fluid Color: Clear Amniotic Fluid Color: Clear Amniotic Fluid Amount: Moderate Amniotic Fluid Amount: Moderate Amniotic Fluid Odor: Normal STAGES OF LABOR Stage 1 hrs: 3 Stage 1 min: 10 Stage 2 hrs: 0 Stage 2 min: 9 Stage 3 hrs: 0 Stage 3 min: 3 Total Time in Labor hrs: 3 Total Time in Labor min: 22 VAGINAL DELIVERY Laceration Extension: Second Degree Laceration Type: Perineal Laceration Repair Note: Second-degree midline perineal laceration. Area infiltrated with 1% lidocai ne. Laceration repaired with 2.0 repeated without complication. Patient tolerated well. Initial Vag Sponge Count: 5 Final Vag Sponge Count: 5 Initial Vag Sharps Count: 1 Final Vag Sharps Count: 1 Sponge Count Correct: Yes Sharps Count Correct: Yes BABY A INFORMATION Delivery Date/Time: 04/19/2018 03:49 Method of Delivery: Vaginal Method of Delivery: Vaginal Born in Route : No : N/A Forceps: N/A Vacuum Extraction: N/A Shoulder Dystocia : Yes SHOULDER DYSTOCIA BABY A Delivery of Head: 04/19/2018 03:47 Infant Delivery Date/Time: 04/19/2018 03:49 Time Head to Delivery : 2.0 1st Intervention to Resolve: McRobert's Maneuver 2nd Intervention to Resolve: Suprapubic Pressure Verify NO Fundal Pressure: No Fundal Pressure Applied Arm Under Symphisis at Del: Right PRESENTATION/POSITION BABY A Presentation: Cephalic Cephalic Presentation: Vertex Breech Presentation: N/A PLACENTA INFORMATION BABY A Placenta Delivery Time : 04/19/2018 03:52 Placenta Method of Delivery: Spontaneous Placenta Method of Delivery: Spontaneous Placenta Status: Delivered SCORES BABY A Heart Rate 1 min: >100 bpm Resp Effort 1 min: Good Cry Reflex Irritability 1 min: Cough or Sneeze or Pulls Away Muscle Tone 1 min: Active Motion Color 1 min: Blue/Pale Resuscitation Effort 1 min: Tactile Stimulation SCORE 1 MIN: 8 Heart Rate 5 min: >100 bpm Resp Effort 5 min: Good Cry Reflex Irritability 5 min: Cough or Sneeze or Pulls Away Muscle Tone 5 min: Active Motion Color 5 min: Blue/Pale Resuscitation Effort 5 min: Tactile Stimulation; Oxygen; PPV/NCPAP SCORE 5 MIN: 8 INFANT INFORMATION BABY A Gestational Age at Delivery: 38.0 Gestational Status: Term Outcome : Liveborn Condition : Stable Sex: Female WEIGHT/LENGTH BABY A Infant Birthweight (gms): 3830 Infant Weight (lb): 8 Infant Weight (oz): 7 Length Inches: 19.88 Length cms: 50.5 CORD INFORMATION BABY A No. Cord Vessels: 3 Nuchal Cord : N/A Infant Suction: Mouth; Nose; Pharynx ASSESSMENT BABY A Infant Complications: Shoulder Dystocia Physical Findings at Delivery: Within Normal Limits Infant Respirations: Appears Normal Infant Care By: Transferred To: Remains with Mother
[2018-04-19] MEDS ORDERED: Influenza Vaccine 60 mcg/0.5 mL SYR (4YR UP) IM ONE (10:00)
[2018-04-20 07:13] LABS: HEMOGLOBIN 11.5 g/dL (12.0-16.0); MEAN CELL VOLUME 91.2 fl (81.0-99.0); MEAN CORPUSCULAR HEMOGLOBIN 30.4 pg (27.0-31.0); MEAN CORPUSCULAR HGB CONC 33.4 g/dL (33.0-37.0); RBC 3.78 Mil/uL (3.80-5.20); RED CELL DISTRIBUTION WIDTH 14.1 % (11.5-14.5); WHITE BLOOD COUNT 7.4 K/uL (4.8-10.8)
--- NOTE | 2018-04-20 07:16 | OBPPN ---
Datetime: 04/20/2018 05:57 PP Pain Prov: Within normal limits PP Nausea Prov: Denies PP Flatus Prov: Yes PP BM Prov: Yes PP Breasts Prov: Not Done PP Heart Prov: Normal PP Lungs Prov: Normal PP Abdomen/Uterus Prov: Normal PP Lochia Prov: Normal PP Vulva/Perineum Prov: Normal PP CVA Tenderness Prov: Normal PP Extremities Prov: Normal PP C/S Incision Prov: Not Applicable PP Progress Prov: Normal PP Impression Prov: Normal progression PP Plan Prov: Continue present management PP Progress Note Prov: S: 27 yo s/p on 04/19/18, PPD1. Pt was seen and examined at bed side this AM. No overnight events. Pain is minimal. Ambulating and tolerating PO diet without difficu lty. Breast feeding exclusively. Lochia < menses. +Flatus/+ BM. Denies dizziness, orthostatic change s, changes in vision, palpitations, chest pain, fever, chills, diarrhea, nausea and vomiting. O: VS: Stable overnight GEN: NAD Cardio: S1S2, no murmurs Lungs: clear breath sounds b/l, no wheezing Abdomen: BS+, appropriate tenderness to palpation. Uterus is firm and at the level of the umbilic us. EXT: No edema, calves non-tender NEURO/PSYCH: AAOx3, no grossly focal deficits, preserved affect and mood. H/H: aCBC: 13.2/29.5 pCBC: pending Assessment/Plan: 27 yo s/p on 04/19/18, PPD1. Pt remains afebrile, tolerating pain. -Regular diet -Discharge today 04/20 -Continue with current management -Encourage and ambulating -Colace 100mg BID -Ibuprofen 600mg q6 for pain Frieda Austin, PGY 1 OB Hospitalist Addendum: Pt seen and examined by me. Agree w/ above. PPD 1 s/p , doing well, b reast and bottle feeding. Continue current care. (ES) IP PP Procedures: None Vital Signs Provider PP: Reviewed; Within Normal Limits
[2018-04-20] MEDS ORDERED: Influenza Vaccine (5 YR UP)/PF 60 MCG/0.5 ML SYR IM ONE (10:00)
[2018-04-21] MEDS ORDERED: Pneumococcal 23-Valent Vaccine IM ONE (09:00)
--- NOTE | 2018-04-21 09:54 | OBPPN ---
Datetime: 04/21/2018 07:33 PP Pain Prov: Within normal limits PP Nausea Prov: Denies PP Flatus Prov: Yes PP BM Prov: Yes PP Breasts Prov: Not Done PP Heart Prov: Normal PP Lungs Prov: Normal PP Abdomen/Uterus Prov: Normal PP Lochia Prov: Normal PP Vulva/Perineum Prov: Not Done PP CVA Tenderness Prov: Normal PP Extremities Prov: Normal PP C/S Incision Prov: Not Applicable PP Progress Prov: Normal PP Impression Prov: Normal progression PP Plan Prov: Discharge PP Progress Note Prov: S: 27 yo s/p on 04/19/18. Seen and examined at bedside this AM. Doing well on PPD2 Amublating, tolerating PO, okay. O: VS: Stable overnight GEN: NAD Cardio: S1S2, no murmurs Lungs: clear breath sounds b/l, no wheezing Abdomen: BS+, appropriate tenderness to palpation. Uterus is firm and at the level of the umbilic us. EXT: No edema, calves non-tender NEURO/PSYCH: AAOx3, no grossly focal deficits, preserved affect and mood. H/H: aCBC: 13.2/29.5 pCBC: 11.5/24.5 Assessment/Plan: 27 yo s/p on 04/19/18, PPD2. -Regular diet -Discharge today 04/20 -Encourage and ambulating -Colace 100mg BID -Ibuprofen 600mg q6 for pain Keshia Caraballo, PGY [address] Torres: I have evalauted the patient independently and I agree with the above Vital Signs Provider PP: Reviewed; Within Normal Limits
--- NOTE | 2018-04-21 09:54 | OBDCSUM ---
Datetime: 04/21/2018 07:38 Discharged to, Provider: Home Follow up at, Provider: [facility] Disch Instr Activity: Normal activity Disch Instr Diet: Regular Discharge Instructions, Provider: Routine instructions given Discharge Diagnosis, Provider: Term Delivered Discharge Time: 04/21/2018 10:00 Follow up in weeks, Provider: 4-6 weeks Disch Referrals: None Contraception discussed, Prov: Yes Disch Activity Restrictions: No sexual activity; Nothing in vagina - [place], tampons, douche Discharge Comment, Provider: 27 yo C-sec of baby girl on 04/19/18 at 38.0 EGA. : Female, Wt. 3830 gm, 8/8, -2 for color. Post- D/C Summary: No OB complications. No complications during post- period. Lochia i s less than menses. Pt able to pass flatus and BM, voiding well and able to ambulate. Tolerate regula r diet w/o N/V. Fundus firm below umbilicus level. Pt is hemodynamically stable. H/H: aCBC: 13.2/39.5; pCBC: 11.5/34.5 Discharge Instructions given to patient: PNV 1 tab po q/day Ibuprofen 600 mg 1 tab po prn q4-6 if moderate pain #30. NO REFILL. Ambulatory with caution, nothing per vagina/sex for 4 weeks, no heavy lifting, avoid stairs, if ex cessive bleeding or fever without relief from Tylenol go to [facility] Contraception after Delivery: Depo-Provera
[2018-04-21 22:57] VITALS: BP 114/74; RESP 20; TEMP 98
== END 2018-04-21 18:56 | disposition home or self-care (01) | DRG 560 ==
LOC: H.EROB2 17:00 → H.L&D 21:10 → H.OB/GYN 04-19 06:00
PROVIDERS: ADMIT Obstetrics & Gynecology; ATTEND Obstetrics & Gynecology
PROC: 10E0XZZ Delivery of Products of Conception, External Approach (ICD-10-PCS; principal; 2018-04-19)
PROC: 0KQM0ZZ Repair Perineum Muscle, Open Approach (ICD-10-PCS; 2018-04-19)
PROC: 3E02340 Introduction of Influenza Vaccine into Muscle, Percutaneous Approach (ICD-10-PCS; 2018-04-19)
DX: O24.420 Gestational diabetes mellitus in childbirth, diet controlled (principal); O99.824 Streptococcus B carrier state complicating childbirth; O66.0 Obstructed labor due to shoulder dystocia; O70.1 Second degree perineal laceration during delivery; Z37.0 Single live birth; Z3A.38 38 weeks gestation of pregnancy; Z23 Encounter for immunization